=== PATIENT | female | born 1980 | race Caucasian/White ===

== ENCOUNTER 2016-07-27 08:57 | Day surgery (SDC) | payer MEDICAID, OTHER ==
[2016-07-27] VITALS (9 sets, daily range): BP systolic 106–129; BP diastolic 67–82; PULSE 54–66; RESP 16–20; Ht 170.2 cm; Wt 69.0 kg
[~2016-07-27] VITALS: Ht 170.2 cm; Wt 69.0 kg
[~2016-07-27 08:57] MED LIST: LACTATED RINGER'S 1,000 ML IV SCH
[2016-07-27] MEDS ORDERED: LACTATED RINGER'S 1,000 ML IV ONE (10:00)
[2016-07-27] MEDS ORDERED: ALBU90AE INHALATION (10:15)
[2016-07-27 10:28] LABS: ADD SCAN DIFF NO
--- NOTE | 2016-07-27 10:30 | RADRPT ---
PROCEDURE: XR Chest. CLINICAL INDICATION: Preoperative chest TECHNIQUE: Chest AP portable. COMPARISON: No comparison available. FINDINGS: The mediastinal structures are unremarkable. The heart is normal in size and configuration. The pu lmonary vascularity is normal. The lung [place] are unremarkable. No consolidation is identified. The pleural spaces are unremarkable. The axial skeleton is unremarkable. IMPRESSION: No active intrathoracic disease. RPTAT: [facility] .Yg Hubbard MD, MD Date Time Electronically viewed and signed by .Yg Hubbard MD, on 07/27/2016 10:30 .B/
[2016-07-27 10:32] LABS: BASOPHIL # 0.1 10^3/ul (0.0-0.1); BASOPHILS % 0.8 % (0.0-2.0); EOSINOPHILS # 0.3 10^3/ul (0.0-0.5); EOSINOPHILS % 3.7 % (0.0-7.0); HEMATOCRIT 38.4 % (37.0-47.0); HEMOGLOBIN 13.2 g/dl (12.0-16.0); LYMPHOCYTES # 1.5 10^3/ul (0.8-2.9); MEAN CORPUSCULAR HEMOGLOBIN 32.5 pg (29.0-33.0); MEAN CORPUSCULAR HGB CONC 34.4 g/dl (32.0-37.0); MEAN CORPUSCULAR VOLUME 94.6 fl (82.0-101.0); MEAN PLATELET VOLUME 10.7 fl (7.4-10.4); MONOCYTE # 0.4 10^3/ul (0.3-0.9); NEUTROPHIL # 5.5 10^3/ul (1.6-7.5); NEUTROPHILS % 71.1 % (39.0-77.0); PLATELET COUNT 290 10^3/UL (140-415); RED BLOOD COUNT 4.06 10^6/ul (4.20-5.40); RED CELL DISTRIBUTION WIDTH 13.8 % (11.5-14.5); WHITE BLOOD COUNT 7.7 10^3/ul (4.8-10.8)
[2016-07-27] MEDS ORDERED: PROPOFOL 20 ML ONE (12:12)
[2016-07-27] MEDS ORDERED: LIDOCAINE 2% (SDV) 5 ML INJ ONE (12:12)
[2016-07-27] MEDS ORDERED: MIDAZOLAM 1 MG/ML 2 ML INJ ONE (12:13)
[2016-07-27] MEDS ORDERED: DEXAMETHASONE 4 MG/ML 1 ML INJ ONE (12:13)
[2016-07-27] MEDS ORDERED: PHENYLephrine (100 MCG/ML) 5ML SYG ONE (12:13)
[2016-07-27] MEDS ORDERED: FENTAnyl 50 MCG/ML VIAL ONE (12:13)
[2016-07-27] MEDS ORDERED: ONDANSETRON 4 MG INJ ONE (12:13)
--- NOTE | 2016-07-27 14:41 | PREOPHP ---
DATE OF ADMISSION: 07/27/2016 HISTORY OF PRESENT ILLNESS: A 36-year-old female, 4, para 2, AB 1, admitted for dilation an d curettage. The patient had an obstetric ultrasound which was suspicious for molar . PAST MEDICAL HISTORY: Asthma. PAST SURGICAL HISTORY: LEEP. ALLERGIES: NO KNOWN ALLERGIES. FAMILY HISTORY: Noncontributory. PHYSICAL EXAMINATION: VITAL SIGNS: The patient is afebrile. Vital signs stable. HEAD, NECK AND CHEST: Within normal limits. ABDOMEN: Soft, nontender, nondistended. PELVIC: Normal. EXTREMITIES: Within normal limits. NEUROLOGIC: Within normal limits. IMPRESSION: Rule out molar . PLAN: Dilation and curettage. Risks, benefits and alternatives of the procedure were explained to the patient. The patient understands and gave informed consent for the procedure. Dictated By: LEILANI TELLO/DEBBIE Conf#: [id number] DID#: [id number]
--- NOTE | 2016-07-27 14:47 | OPR ---
DATE OF OPERATION: 07/27/2016 PREOPERATIVE DIAGNOSIS: Rule out molar . POSTOPERATIVE DIAGNOSIS: Rule out molar . OPERATION PERFORMED: Dilation and curettage. SURGEON: Leilani Partida MD ANESTHESIA: General. PROCEDURE: The patient was taken to the operating room and placed on the operating table in the sup ine position. After adequate general anesthesia was given, the patient was placed in the dorsal lit hotomy position. The area was prepared and draped in the usual sterile fashion. A speculum was brittnee shilpi inside the vagina and the tenaculum was used to grasp the anterior lip of the cervix. Using cer vical dilators, the cervical os was dilated. Using the suction machine suction curettage was perfor med. Using a sharp curette, sharp curettage was performed. The specimen obtained was sent to [facility]. All the instruments were removed. Adequate hemostasis was assured. The patient tolerated the procedure well. The patient was awakened from anesthesia and transferred to the recovery room in s table condition. ESTIMATED BLOOD LOSS: Minimal. COMPLICATIONS: None. COUNTS: All counts were correct. Dictated By: LEILANI TELLO/DEBBIE Conf#: [id number] DID#: [id number]
[2016-07-27] MEDS ORDERED: morphine (1 MG/ML) 10ML SYRINGE IV PRN ×3 (15:00)
[2016-07-27] MEDS ORDERED: OXYCODONE/ACETAMINOPHEN (5/325) TAB PO PRN ×2 (15:00)
[2016-07-27] MEDS ORDERED: METOCLOPRAMIDE 10 MG INJ IV PRN (15:00)
[2016-07-27] MEDS ORDERED: ONDANSETRON 4 MG INJ IV PRN (15:00)
[2016-07-27] MEDS ORDERED: ALBUTEROL 0.083% (NEB) 2.5 MG/3 ML AMP HHN ONE (15:00)
== END 2016-07-27 15:40 | disposition home or self-care (01) ==
LOC: SDS 08:57
PROVIDERS: ATTEND Obstetrics & Gynecology
DX: N93.9 Abnormal uterine and vaginal bleeding, unspecified (principal)
CPT/HCPCS: 58120; 71010; 84702; 85025; 86850; 86900; 86901; 88305; J1100; J2250; J2405; J3010; Z7512; Z7610; J2370